=== PATIENT | female | born 1990 | race Caucasian/White ===

== ENCOUNTER 2021-06-20 09:45 | Outpatient (CLI) | payer OTHER | END 2021-06-20 09:54 | disposition home or self-care (01) | LOC: SONOGRAMA 09:45 | PROVIDERS: ATTEND Student in an Organized Health Care Education/Training Program | DX: R10.2 Pelvic and perineal pain (principal) ==

== ENCOUNTER 2024-10-15 15:00 | Inpatient (IN) | payer OTHER ==
[~2024-10-15] VITALS: Ht 154.9 cm; Wt 3.2 kg
[2024-10-27 13:54] VITALS: BP 103/70
[2024-10-27 15:14] LABS: BASO % 0.2 % (0.1-1.2); EOS # 0.06 (0.04-0.54); EOS % 0.6 % (0.7-7.0); HEMATOCRIT 28.4 % (34.1-44.9); LYMPH # 1.33 (1.18-3.74); LYMPH % 13.7 % (19.3-53.1); MEAN CORPUSCULAR HEMOGLOBIN 24.3 pg (25.6-32.2); MONO # 0.59 (0.24-0.82); MONO % 6.1 % (4.7-12.5); NEUT # 7.65 (1.56-6.13); NEUT % 78.7 % (34.0-71.1); PLATELET COUNT 311 K/uL (163-369); RED BLOOD COUNT 3.66 M/uL (3.93-5.22); RED CELL DISTRIBUTION WIDTH 18.5 % (11.6-14.4)
[2024-10-27] MEDS ORDERED: RINGERS SOLUTION,LACTATED 1,000 ML IV SCH (15:15)
[2024-10-27 15:17] LABS: HEMOGLOBIN 8.9 g/dL (11.2-15.7)
[2024-10-27 15:24] VITALS: BP 108/69
[2024-10-27 15:43] LABS: INR < 0.93; PARTIAL THROMBOPLASTIN TIME 22.8 SECONDS (22.0-34.0); PROTHROMBIN TIME 10.2 SECONDS (9.0-11.5)
[2024-10-27 15:51] LABS: ALBUMIN 2.7 gm/dL (3.4-5.0); BILIRUBIN TOTAL 0.39 mg/dL (0.3-1.2); CALCIUM 8.6 mg/dL (8.5-10.1); CREATININE SERUM 0.68 mg/dL (0.55-1.02); GFR 99.04; GLOBULINA 3.6 G/DL (2.4-3.5); POTASSIUM 4.05 mEq/L (3.5-5.1); TOTAL PROTEIN 6.3 gm/dL (6.4-8.2)
[2024-10-27] MEDS ORDERED: MISOPROSTOL 25 MCG TABLET ONE (16:17)
[2024-10-27] MEDS ORDERED: MISOPROSTOL 25 MCG TABLET VAG ONE (16:55)
[2024-10-27] MEDS ORDERED: MINERAL OIL 30 ML BLIST.PACK PO NR (17:30)
[2024-10-27] MEDS ORDERED: MAGNESIUM HYDROXIDE 30 ML BLIST.PACK PO NR (17:30)
[2024-10-27 19:02] VITALS: BP 111/77
[2024-10-27 23:22] VITALS: BP 109/79
[2024-10-28 03:19] VITALS: BP 105/73
[2024-10-28] MEDS ORDERED: OXYTOCIN 500 ML IV ONE (07:15)
[2024-10-28] MEDS ORDERED: OXYTOCIN 20 UNITS/500ML RL PIGGYBAG IV ONE (07:24)
[2024-10-28 08:26] VITALS: BP 101/66
[2024-10-28 11:10] VITALS: BP 102/70
[2024-10-28] MEDS ORDERED: ERYTHROMYCIN BASE OPHT 1GM EACH TUBE OP ONE (13:04)
[2024-10-28] MEDS ORDERED: OXYTOCIN 10 UNITS/ML VIAL ONE ×3 (13:22→18:52)
[2024-10-28] MEDS ORDERED: CEFAZOLIN SODIUM 1,000 MG VIAL ONE (13:55)
[2024-10-28] MEDS ORDERED: MORPHINE SULFATE 4 MG/ML CARTRIDGE IV SCH (14:54)
[2024-10-28] MEDS ORDERED: OXYTOCIN 1,000 ML IV ONE (15:00)
[2024-10-28] MEDS ORDERED: MORPHINE SULFATE 4 MG/ML VIAL IV ONE ×2 (16:30→17:00)
[2024-10-28] MEDS ORDERED: KETOROLAC TROMETHAMINE 30 MG VIAL IV SCH (18:00)
[2024-10-28] MEDS ORDERED: KETOROLAC TROMETHAMINE 30 MG VIAL ONE (18:30)
[2024-10-28 21:11] VITALS: BP 124/79
[2024-10-29 01:25] VITALS: BP 102/65
[2024-10-29] MEDS ORDERED: ACETAMINOPHEN 500 MG GEL..CAP PO SCH (06:00)
[2024-10-29 07:38] LABS: BASO % 0.3 % (0.1-1.2); EOS # 0.04 (0.04-0.54); EOS % 0.4 % (0.7-7.0); LYMPH # 1.06 (1.18-3.74); LYMPH % 11.3 % (19.3-53.1); MEAN CORPUSCULAR HEMOGLOBIN 23.9 pg (25.6-32.2); MONO # 0.57 (0.24-0.82); MONO % 6.1 % (4.7-12.5); NEUT % 81.5 % (34.0-71.1); PLATELET COUNT 213 K/uL (163-369); RED BLOOD COUNT 3.06 M/uL (3.93-5.22); RED CELL DISTRIBUTION WIDTH 18.6 % (11.6-14.4)
[2024-10-29 07:57] LABS: HEMATOCRIT 23.6 % (34.1-44.9); HEMOGLOBIN 7.3 g/dL (11.2-15.7)
[2024-10-29] MEDS ORDERED: DOCUSATE SODIUM 100MG CAP PO SCH (09:00)
[2024-10-29] MEDS ORDERED: SIMETHICONE 125 MG CAPSULE PO SCH (09:00)
[2024-10-29] MEDS ORDERED: PNV,CALCIUM 72/IRON/FOLIC ACID 1 TAB TABLET PO SCH (09:00)
[2024-10-29] MEDS ORDERED: GABAPENTIN 300 MG CAPSULE PO SCH (09:00)
[2024-10-29 10:42] VITALS: BP 96/62
[2024-10-29] MEDS ORDERED: ERYTHROMYCIN BASE OPHT 1GM EACH TUBE OP ONE (13:45)
[2024-10-29] MEDS ORDERED: OXYTOCIN 10 UNITS/ML VIAL IV ONE (13:45)
[2024-10-29] MEDS ORDERED: CEFAZOLIN SODIUM 1,000 MG VIAL IV ONE (13:45)
[2024-10-29 16:00] VITALS: BP 111/72; O2SAT 99
[2024-10-29] MEDS ORDERED: IBUprofen 600 MG TABLET PO SCH (18:00)
[2024-10-30 01:07] VITALS: BP 102/68; O2SAT 96
[2024-10-30 09:58] VITALS: BP 119/79
[2024-10-30 10:05] LABS: BASO % 0.1 % (0.1-1.2); EOS # 0.11 (0.04-0.54); EOS % 1.1 % (0.7-7.0); HEMATOCRIT 29.8 % (34.1-44.9); LYMPH # 0.69 (1.18-3.74); LYMPH % 6.9 % (19.3-53.1); MONO # 0.54 (0.24-0.82); MONO % 5.4 % (4.7-12.5); NEUT # 8.57 (1.56-6.13); NEUT % 85.9 % (34.0-71.1); PLATELET COUNT 243 K/uL (163-369); RED BLOOD COUNT 3.76 M/uL (3.93-5.22); RED CELL DISTRIBUTION WIDTH 18.8 % (11.6-14.4)
[2024-10-30 10:07] LABS: HEMOGLOBIN 9.4 g/dL (11.2-15.7)
[2024-10-30 10:39] LABS: INR < 0.93; PARTIAL THROMBOPLASTIN TIME 27.1 SECONDS (22.0-34.0); PROTHROMBIN TIME 10.2 SECONDS (9.0-11.5)
== END 2024-10-30 13:26 | disposition home or self-care (01) | DRG 787 ==
LOC: OB/GYN 10-27 13:37 → LDR 10-27 13:37 → O/R 10-28 13:39 → OB/GYN 10-28 15:00
PROVIDERS: Obstetrics & Gynecology Gynecology; ADMIT Obstetrics & Gynecology Maternal & Fetal Medicine; ATTEND Obstetrics & Gynecology Maternal & Fetal Medicine
PROC: 3E0P7VZ Introduction of Hormone into Female Reproductive, Via Natural or Artificial Opening (ICD-10-PCS; 2024-10-27)
PROC: 4A1HXCZ Monitoring of Products of Conception, Cardiac Rate, External Approach (ICD-10-PCS; 2024-10-27)
PROC: 3E033VJ Introduction of Other Hormone into Peripheral Vein, Percutaneous Approach (ICD-10-PCS; 2024-10-28)
PROC: 10D00Z1 Extraction of Products of Conception, Low, Open Approach (ICD-10-PCS; principal; 2024-10-28 17:15)
PROC: 30233N1 Transfusion of Nonautologous Red Blood Cells into Peripheral Vein, Percutaneous Approach (ICD-10-PCS; 2024-10-29)
DX: O61.0 Failed medical induction of labor (principal); D62 Acute posthemorrhagic anemia; O99.02 Anemia complicating childbirth; O36.5930 Maternal care for other known or suspected poor fetal growth, third trimester, not applicable or unspecified; Z3A.39 39 weeks gestation of pregnancy; Z37.0 Single live birth